=== PATIENT | male | born 2000 | race Two or more races ===

== ENCOUNTER 2025-02-10 01:20 | Emergency (ER) | payer OTHER ==
[~2025-02-10] VITALS: Ht 172.7 cm; Wt 52.2 kg
[2025-02-10] MEDS ORDERED: KETOROLAC TROMETHAMINE 10 MG TABLET PO STA (05:23)
[2025-02-10] MEDS ORDERED: KETO10TA2 PO (07:33)
== END 2025-02-10 12:16 ==
LOC: ER 01:20
DX: S20.212A Contusion of left front wall of thorax, initial encounter (principal); X58.XXXA Exposure to other specified factors, initial encounter; Y93.89 Activity, other specified; Y92.89 Other specified places as the place of occurrence of the external cause; Y99.9 Unspecified external cause status